=== PATIENT | male | born 1980 | race Hispanic/Latino ===

== ENCOUNTER 2017-12-12 20:53 | Emergency (ER) | payer OTHER ==
[2017-12-12] MEDS ORDERED: DEXAMETHASONE SOD PHOSPHATE 10MG/ML 1ML VIAL ONE (21:41)
[2017-12-12] MEDS ORDERED: IPRATROPIUM/ALBUTEROL SULFATE 3 ML SOLUTION IH ONE (21:50)
== END 2017-12-12 22:41 | disposition home or self-care (01) ==
LOC: EDH 20:53
DX: J20.9 Acute bronchitis, unspecified (principal); Z72.0 Tobacco use
CPT/HCPCS: 94640; 96372; 99283; J1100

== ENCOUNTER 2019-04-21 21:33 | Emergency (ER) | payer OTHER ==
[2019-04-21] MEDS ORDERED: IPRATROPIUM/ALBUTEROL SULFATE 3 ML SOLUTION IH ONE (22:08)
[2019-04-21] MEDS ORDERED: METHYLPREDNISOLONE SOD SUCC 125MG/2ML VIAL ONE (22:09)
[2019-04-21] MEDS ORDERED: ACETAMINOPHEN EXTRA STRENGTH 500 MG TABLET ONE (22:18)
[2019-04-21] MEDS ORDERED: IBUPROFEN 800 MG TAB ONE (22:18)
[2019-04-21 22:45] LABS: RAPID GROUP A STREP POSITIVE (NEGATIVE)
[2019-04-21] MEDS ORDERED: LIDOCAINE HCL-MPF 1% 2ML VIAL ONE (22:50)
[2019-04-21] MEDS ORDERED: CEFTRIAXONE SODIUM 1 GM ONE (22:50)
[2019-04-21] MEDS ORDERED: SODIUM CHLORIDE 0.9% 50 ML IV ONE (22:51)
== END 2019-04-21 23:32 | disposition home or self-care (01) ==
LOC: EDH 21:33
DX: J09.X2 Influenza due to identified novel influenza A virus with other respiratory manifestations (principal); J45.909 Unspecified asthma, uncomplicated; Z90.49 Acquired absence of other specified parts of digestive tract; Z72.0 Tobacco use
CPT/HCPCS: 71046; 87804 ×2; 87880; 94640; 96374; 96375; 99284; J0696; J2930; J3490

== ENCOUNTER 2021-07-10 14:22 | Emergency (ER) | payer OTHER ==
[~2021-07-10] VITALS: Ht 139.7 cm; Wt 93.9 kg
[2021-07-10 14:52] LABS: APPEARANCE,URINE Clear (CLEAR); BILIRUBIN,URINE Negative (NEGATIVE); COLOR,URINE Yellow (YELLOW); GLUCOSE, URINE (UA) Negative (NEGATIVE); KETONES,URINE Negative (NEGATIVE); LEUKOCYTE ESTERASE ,URINE Trace (NEGATIVE); NITRATE,URINE Negative (NEGATIVE); OCCULT BLOOD,URINE Negative (NEGATIVE); PROTEIN,URINE Negative (NEGATIVE); UROBILINOGEN,URINE 0.2 mg/dL (0.2-1.0)
[2021-07-10 15:00] LABS: BACTERIA,URINE Rare /HPF (None Seen); RBC,URINE 0-1 /HPF (0-1); SQUAMOUS EPITHELIAL CELL,UR Rare /HPF (0-2); WBC,URINE 0-1 /HPF (0-1)
[2021-07-10] MEDS ORDERED: PROMETHAZINE HCL 25 MG/ML 1ML AMPULE IM ONE (15:00)
[2021-07-10] MEDS ORDERED: 0.9%NACL 1000ML 1,000 ML IV SCH (15:00)
[2021-07-10] MEDS ORDERED: KETOROLAC 30MG VIAL (30MG/ML) IVP ONE (15:00)
[2021-07-10] MEDS ORDERED: CYCLOBENZAPRINE HCL 10 MG TABLET PO ONE (15:00)
[2021-07-10 15:05] LABS: BASOPHILS % (AUTO) 1.1 % (0.0-5.0); HEMATOCRIT 50.8 % (42-54); LYMPHOCYTES % (AUTO) 23.6 % (21.0-51.0); MEAN CORPUSCULAR HEMOGLOBIN 30.1 pg (27.0-33.0); MEAN CORPUSCULAR HGB CONC 33.3 g/dL (32.0-36.0); MEAN CORPUSCULAR VOLUME 90.4 fL (79-99); MONOCYTES % (AUTO) 8.6 % (3.0-13.0); NEUTROPHILS % (AUTO) 62.5 % (40.0-77.0); PLATELET COUNT (AUTO) 353 K/uL (130-400); RED BLOOD CELL COUNT(AUTO) 5.62 MIL/uL (4.50-6.20); RED CELL DISTRIBUTION WIDTH 12.4 % (11.0-15.5); WHITE BLOOD COUNT (AUTO) 8.2 K/uL (4.8-10.8)
[2021-07-10 15:26] LABS: ALBUMIN 3.9 g/dL (3.5-5.0); BILIRUBIN,TOTAL 0.4 mg/dL (0.2-1.0); CREATININE 0.8 mg/dL (0.5-1.5); POTASSIUM 4.1 mmol/L (3.5-5.1); TOTAL PROTEIN, SERUM 7.4 g/dL (6.0-8.3)
[2021-07-10] MEDS ORDERED: CYCL10TA16 PO (16:00)
[2021-07-10] MEDS ORDERED: NAPR-1180 PO (16:00)
[2021-07-10 16:20] VITALS: BP 125/74
== END 2021-07-10 16:32 | disposition home or self-care (01) ==
LOC: EDH 14:22
DX: G43.909 Migraine, unspecified, not intractable, without status migrainosus (principal); E86.0 Dehydration; Z20.822 Contact with and (suspected) exposure to COVID-19; Z90.49 Acquired absence of other specified parts of digestive tract; Z98.890 Other specified postprocedural states
CPT/HCPCS: 36415; 80053; 81001; 85025; 87635; 87804 ×2; 96361; 96372; 96374; 99284; C9803; J1885; J2550; J7030

== ENCOUNTER 2021-08-18 01:18 | Emergency (ER) | payer OTHER ==
[~2021-08-18] VITALS: Ht 170.2 cm; Wt 87.1 kg
[~2021-08-18 01:18] MED LIST: CYCL10TA16 PO; NAPR-1180 PO
[2021-08-18 01:21] VITALS: BP 156/101
[2021-08-18] MEDS ORDERED: KETOROLAC 60 MG VIAL (30MG/ML) IM ONE (02:00)
[2021-08-18] MEDS ORDERED: ORPHENADRINE CITRATE 30 MG/ML ML IM ONE (02:00)
[2021-08-18] MEDS ORDERED: AMOX500C2 PO (03:11)
[2021-08-18] MEDS ORDERED: BENZ-39 PO (03:11)
[2021-08-18] MEDS ORDERED: IBUP-2070 PO (03:11)
[2021-08-18] MEDS ORDERED: AMOXICILLIN 500 MG CAPSULE PO ONE ×2 (03:15→03:30)
== END 2021-08-18 03:23 | disposition home or self-care (01) ==
LOC: EDH 01:18
DX: U07.1 COVID-19 (principal); J02.0 Streptococcal pharyngitis; J06.9 Acute upper respiratory infection, unspecified; Z79.1 Long term (current) use of non-steroidal anti-inflammatories (NSAID); Z90.49 Acquired absence of other specified parts of digestive tract
CPT/HCPCS: 87635; 87804 ×2; 87880; 96372 ×2; 99284; C9803; J1885; J2360

== ENCOUNTER 2023-07-03 17:19 | Inpatient (IN) | payer OTHER ==
[~2023-07-03] VITALS: Ht 165.1 cm; Wt 89.4 kg
[~2023-07-03 17:19] MED LIST changes: +AMOX500C2 PO; +BENZ-39 PO; +IBUP-2070 PO
[2023-07-03 17:58] LABS: BASOPHILS # (AUTO) 0.09 K/uL (0.00-0.20); BASOPHILS % (AUTO) 0.7 % (0.0-5.0); EOSINOPHILS # (AUTO) 0.13 K/uL (0.00-0.70); HEMATOCRIT 49.6 % (42-54); IMMATURE GRANULOCYTE ABSOLUTE 0.03 K/uL (0-1); LYMPHOCYTES # (AUTO) 1.9 K/uL (1.0-4.8); LYMPHOCYTES % (AUTO) 15.2 % (21.0-51.0); MEAN CORPUSCULAR HEMOGLOBIN 31.4 pg (27.0-33.0); MEAN CORPUSCULAR HGB CONC 35.3 g/dL (32.0-36.0); MONOCYTES # (AUTO) 0.8 K/uL (0.1-1.0); MONOCYTES % (AUTO) 5.9 % (3.0-13.0); NEUTROPHILS # (AUTO) 9.8 K/uL (1.8-7.7); PLATELET COUNT (AUTO) 324 K/uL (130-400); RED BLOOD CELL COUNT(AUTO) 5.57 MIL/uL (4.50-6.20); RED CELL DISTRIBUTION WIDTH 12.2 % (11.0-15.5); WHITE BLOOD COUNT (AUTO) 12.7 K/uL (4.8-10.8)
[2023-07-03 18:08] LABS: CREATININE 0.8 mg/dL (0.5-1.3); POTASSIUM 3.6 mmol/L (3.5-5.1)
[2023-07-03 18:12] LABS: ALBUMIN 3.9 g/dL (3.5-5.0); BILIRUBIN,TOTAL 0.9 mg/dL (0.2-1.0); TOTAL PROTEIN, SERUM 7.5 g/dL (6.0-8.3)
[2023-07-03 18:15] LABS: APPEARANCE,URINE CLEAR (CLEAR); BILIRUBIN,URINE NEGATIVE (NEGATIVE); COLOR,URINE YELLOW (YELLOW); GLUCOSE, URINE (UA) NEGATIVE (NEGATIVE); KETONES,URINE NEGATIVE (NEGATIVE); LEUKOCYTE ESTERASE ,URINE NEGATIVE Leu/uL (NEGATIVE); NITRATE,URINE NEGATIVE (NEGATIVE); PH,URINE 5.5 (5.0-8.0); PROTEIN,URINE 10 mg/dL (NEGATIVE); UROBILINOGEN,URINE 0.2 mg/dL (0.2-1.0)
[2023-07-03 18:18] LABS: ADD UA MICROSCOPIC YES
[2023-07-03 18:46] LABS: RBC,URINE None Seen /HPF (0-1)
[2023-07-03 18:47] LABS: BACTERIA,URINE None Seen /HPF (None Seen); SQUAMOUS EPITHELIAL CELL,UR 0-2 /HPF (0-2); WBC,URINE 0-1 /HPF (0-1)
[2023-07-03] MEDS: 0.9%NACL 1000ML 1,000 ML IV ONE (19:37)
[2023-07-03] MEDS: MORPHINE 4 MG SYG IVP ONE (19:37)
[2023-07-03] MEDS: ZOSYN 3.375GM +NS 50ML IV ONE (19:37)
[2023-07-03] MEDS ORDERED: ONDANSETRON 4MG INJ IV PRN (20:30)
[2023-07-03] MEDS ORDERED: MORPHINE 2 MG SYG IV PRN (20:30)
[2023-07-03] MEDS: 0.9%NACL 1000ML 1,000 ML IV SCH (20:55)
[2023-07-03] MEDS: ONDANSETRON 4MG INJ IVP ONE (20:55)
[2023-07-03] MEDS: ZOSYN 3.375GM+NS 50ML 50 ML IV SCH (20:56)
[2023-07-03] MEDS: FAMOTIDINE 20MG VIAL IV SCH (23:22)
[2023-07-04] VITALS (7 sets, daily range): BP systolic 128–156; BP diastolic 84–107; PULSE 71–86; RESP 16–21; O2SAT 96
[2023-07-04 04:03] LABS: BASOPHILS # (AUTO) 0.08 K/uL (0.00-0.20); BASOPHILS % (AUTO) 0.6 % (0.0-5.0); EOSINOPHILS # (AUTO) 0.09 K/uL (0.00-0.70); EOSINOPHILS % (AUTO) 0.6 % (0.0-8.0); HEMATOCRIT 49.3 % (42-54); IMMATURE GRANULOCYTE ABSOLUTE 0.07 K/uL (0-1); LYMPHOCYTES # (AUTO) 2.2 K/uL (1.0-4.8); LYMPHOCYTES % (AUTO) 15.9 % (21.0-51.0); MEAN CORPUSCULAR HEMOGLOBIN 31.6 pg (27.0-33.0); MEAN CORPUSCULAR HGB CONC 33.7 g/dL (32.0-36.0); MEAN CORPUSCULAR VOLUME 93.7 fL (79-99); MONOCYTES # (AUTO) 1.3 K/uL (0.1-1.0); MONOCYTES % (AUTO) 9.3 % (3.0-13.0); NEUTROPHILS # (AUTO) 10.3 K/uL (1.8-7.7); NEUTROPHILS % (AUTO) 73.1 % (40.0-77.0); PLATELET COUNT (AUTO) 293 K/uL (130-400); RED BLOOD CELL COUNT(AUTO) 5.26 MIL/uL (4.50-6.20); RED CELL DISTRIBUTION WIDTH 12.2 % (11.0-15.5); WHITE BLOOD COUNT (AUTO) 14.1 K/uL (4.8-10.8)
[2023-07-04 04:14] LABS: INR <= 0.93 (0.85-1.15); PROTHROMBIN TIME 10.3 SEC (9.6-11.6)
[2023-07-04 04:15] LABS: PARTIAL THROMBOPLASTIN TIME 28.9 SEC (26.3-35.5)
[2023-07-04 04:23] LABS: ALBUMIN 3.5 g/dL (3.5-5.0); BILIRUBIN,TOTAL 1.1 mg/dL (0.2-1.0); CREATININE 0.9 mg/dL (0.5-1.3); MAGNESIUM 1.9 mg/dL (1.80-2.40); POTASSIUM 3.5 mmol/L (3.5-5.1); TOTAL PROTEIN, SERUM 7.2 g/dL (6.0-8.3)
[2023-07-04] MEDS ORDERED: POTASSIUM CHLORIDE 20MEQ/100ML 100 ML IV PRN (06:00)
[2023-07-04] MEDS ORDERED: KCL 20 MEQ ERTAB PO PRN (06:00)
[2023-07-04] MEDS ORDERED: POTASSIUM CHLORIDE 10% ELIXIR 20 MEQ/15 ML UDCUP PO PRN (06:00)
[2023-07-04] MEDS: MAGNESIUM 2GM PREMIX 50ML 50 ML IV PRN (06:33)
[2023-07-04 15:52] LABS: HEMATOCRIT 47.8 % (42-54); MEAN CORPUSCULAR HEMOGLOBIN 31.9 pg (27.0-33.0); MEAN CORPUSCULAR HGB CONC 33.9 g/dL (32.0-36.0); MEAN CORPUSCULAR VOLUME 94.1 fL (79-99); RED BLOOD CELL COUNT(AUTO) 5.08 MIL/uL (4.50-6.20); RED CELL DISTRIBUTION WIDTH 12.1 % (11.0-15.5); WHITE BLOOD COUNT (AUTO) 12.2 K/uL (4.8-10.8)
[2023-07-04 16:03] LABS: CREATININE 0.9 mg/dL (0.5-1.3); POTASSIUM 3.6 mmol/L (3.5-5.1)
[2023-07-05] VITALS: BP 155/88; PULSE 80; RESP 20
[2023-07-05 04:00] VITALS: BP 132/81; PULSE 77; RESP 19
[2023-07-05 04:08] LABS: HEMATOCRIT 46.9 % (42-54); MEAN CORPUSCULAR HEMOGLOBIN 31.3 pg (27.0-33.0); MEAN CORPUSCULAR HGB CONC 33.7 g/dL (32.0-36.0); MEAN CORPUSCULAR VOLUME 93.1 fL (79-99); RED BLOOD CELL COUNT(AUTO) 5.04 MIL/uL (4.50-6.20); RED CELL DISTRIBUTION WIDTH 12.1 % (11.0-15.5); WHITE BLOOD COUNT (AUTO) 11.5 K/uL (4.8-10.8)
[2023-07-05 04:23] LABS: CREATININE 0.9 mg/dL (0.5-1.3); POTASSIUM 3.8 mmol/L (3.5-5.1)
[2023-07-05 08:00] VITALS: BP 126/78; PULSE 74; PULSE 91; RESP 18; RESP 19
[2023-07-05 12:00] VITALS: BP 124/76; PULSE 64; RESP 18
[2023-07-05] MEDS ORDERED: METR-172 PO (13:45)
[2023-07-05] MEDS ORDERED: LEVO-70 PO (13:45)
== END 2023-07-05 14:45 | disposition home or self-care (01) | DRG 392 ==
LOC: EDH 17:19 → EDHIP 17:20 → 2DH 07-04 01:31 → 3AH 07-04 16:55
PROVIDERS: ADMIT Internal Medicine; ATTEND Internal Medicine
DX: K57.32 Diverticulitis of large intestine without perforation or abscess without bleeding (principal); E66.9 Obesity, unspecified; F17.210 Nicotine dependence, cigarettes, uncomplicated; K40.90 Unilateral inguinal hernia, without obstruction or gangrene, not specified as recurrent; R03.0 Elevated blood-pressure reading, without diagnosis of hypertension; Z68.32 Body mass index [BMI] 32.0-32.9, adult; Z90.49 Acquired absence of other specified parts of digestive tract
CPT/HCPCS: 36415; 74176; 76705; 80048; 80053; 81001; 82948; 83605; 83690; 83735; 85025; 85027; 85610; 85730; 87040; G0378; J2270; J2405; J2543; J3475; J3490; J7030

== ENCOUNTER 2023-09-15 08:52 | Emergency (ER) | payer OTHER ==
[~2023-09-15] VITALS: Ht 170.2 cm; Wt 86.2 kg
[~2023-09-15 08:52] MED LIST changes: -AMOX500C2 PO; -BENZ-39 PO; -CYCL10TA16 PO; -IBUP-2070 PO; +LEVO-70 PO; +METR-172 PO; -NAPR-1180 PO
[2023-09-15 09:20] LABS: BASOPHILS # (AUTO) 0.08 K/uL (0.00-0.20); EOSINOPHILS # (AUTO) 0.15 K/uL (0.00-0.70); HEMATOCRIT 51.4 % (42-54); IMMATURE GRANULOCYTE ABSOLUTE 0.02 K/uL (0-1); LYMPHOCYTES # (AUTO) 1.9 K/uL (1.0-4.8); LYMPHOCYTES % (AUTO) 25.2 % (21.0-51.0); MEAN CORPUSCULAR HEMOGLOBIN 31.8 pg (27.0-33.0); MEAN CORPUSCULAR HGB CONC 34.4 g/dL (32.0-36.0); MEAN CORPUSCULAR VOLUME 92.4 fL (79-99); MONOCYTES # (AUTO) 0.6 K/uL (0.1-1.0); MONOCYTES % (AUTO) 7.4 % (3.0-13.0); NEUTROPHILS # (AUTO) 4.9 K/uL (1.8-7.7); NEUTROPHILS % (AUTO) 64.1 % (40.0-77.0); PLATELET COUNT (AUTO) 359 K/uL (130-400); RED BLOOD CELL COUNT(AUTO) 5.56 MIL/uL (4.50-6.20); RED CELL DISTRIBUTION WIDTH 12.4 % (11.0-15.5); WHITE BLOOD COUNT (AUTO) 7.7 K/uL (4.8-10.8)
[2023-09-15 09:33] LABS: POTASSIUM 4.8 mmol/L (3.5-5.1)
[2023-09-15 10:37] VITALS: BP 132/78; PULSE 78; RESP 18; O2SAT 98
== END 2023-09-15 10:47 | disposition home or self-care (01) ==
LOC: EDH 08:52
DX: R79.9 Abnormal finding of blood chemistry, unspecified (principal); Z90.49 Acquired absence of other specified parts of digestive tract; Z79.899 Other long term (current) drug therapy; Z98.890 Other specified postprocedural states
CPT/HCPCS: 36415; 80048; 85025

== ENCOUNTER 2024-09-13 09:20 | Emergency (ER) | payer SELFPAY ==
[~2024-09-13] VITALS: Ht 170.2 cm; Wt 94.0 kg
[~2024-09-13 09:20] MED LIST changes: +CIPR-278 PO; +FAMO-136 PO
[2024-09-13 10:04] LABS: INFLUENZA TYPE A Negative For Type A (NEGATIVE); INFLUENZA TYPE B Negative For Type B (NEGATIVE)
[2024-09-13 10:26] LABS: SARS-CoV-2, RNA, NAAT POSITIVE SARS CoV-2 (NEGATIVE)
[2024-09-13] MEDS ORDERED: LORA10TA7 PO (10:36)
[2024-09-13] MEDS ORDERED: FLUT16H NS (10:36)
--- NOTE | 2024-09-13 10:36 | ERN ---
General Chief Complaint: Cough Stated Complaint: SINUS PRESSURE, COUGH Time Seen by MD: 09:28 Source: patient History of Present Illness Initial Comments Patient is a 43-year-old male coming in complaining of URI symptoms. Per patient he has been having these symptoms for three days. States that he has a nasal congestion and facial discomfort. Allergies: Coded Allergies: No Known Drug Allergies (Unverified Allergy, Unknown, 04/21/19) Home Meds Active Scripts Famotidine (Pepcid) 20 Mg Tablet, 1 TAB PO BID for 30 Days, #60 TAB 0 Refills Prov:VILLA,[employer] 05/31/24 Ciprofloxacin HCl (Cipro) 500 Mg Tablet, 1 TAB PO BID for 5 Days, #10 TAB 0 Refills Prov:DIAMOND VILLA [employer] 05/31/24 Metronidazole (Metronidazole) 500 Mg Tablet, 500 MG PO Q8H, #30 TAB 0 Refills Prov:[facility] 07/05/23 Levofloxacin (Levofloxacin) 500 Mg Tablet, 500 MG PO DAILY, #10 TAB 0 Refills Prov:MIKE PALMA [facility] 07/05/23 Past Medical History Past Medical History: Migraines, Other Medical History Other: Headaches Past Surgical History: Cholecystectomy Surgical History Other: INGUINAL HERNIA Family History Family History: Negative Social History Social History: Negative ROS Dictation CONSTITUTIONAL: No chills, no fever, no weakness, no diaphoresis, no malaise. HEAD/FACE: No signs of trauma. EENT: No eye pain, no blurred vision, no tearing, no double vision, no ear pain, no ear discharge, no nose pain, nasal congestion, no throat pain, no throat swelling, no mouth pain. RESPIRATORY: No cough, no orthopnea, no SOB, no stridor, no wheezing. CARDIOVASCULAR: No chest pain, no edema, no palpitations, no syncope. GASTROINTESTINAL/ABDOMINAL: No abdominal pain, no constipation, no diarrhea, no nausea, no vomiting. GENITOURINARY: No abnormal discharge, no dysuria, no frequent urination, no hematuria. No complaints of pain in the genitals. MUSCULOSKELETAL: No back pain, no gout, no joint pain, no joint swelling, no muscle pain, no muscle stiffness, no neck pain. INTEGUMENTARY: No change in color, no change in hair/nails, no dryness, no lesion, no lumps, no rash. NEUROLOGICAL/PSYCH: No anxiety, not depressed, no emotional problem, no headache, no numbness, no pre-existing deficit, no history of seizures, no tremors, no weakness. HEMATOLOGIC/LYMPHATIC: Not anemic, no history of blood clots, no apparent bleeding, no bruising, glands not swollen. All Systems Negative, Except as Noted. Physical Exam Physical Exam Dictation VITAL SIGNS: Reviewed. GENERAL APPEARANCE: Alert, oriented x3, no acute distress, obese. HEAD AND FACE: Non-traumatic. EYES: PERRL, pink conjunctivas, eyelid no trauma, anterior chamber clear. EARS: Pinnas intact and no signs of trauma or erythema. Ear canals clear and no discharge. TMs erythema. NOSE: No discharge, no bleeding. OROPHARYNX: Mouth normal, teeth no caries, tongue pink. Pharynx erythema. Tonsils no exudates, no abscesses noted. Mucous membrane moist. NECK: Supple, non-tender, no thyromegaly, no masses, no JVD, no bruits. BREAST: Deferred. CHEST: No tenderness, no crepitus, no paradoxical movement, no retractions. LUNGS: Clear, well-ventilated, symmetric, no rales, no wheezing, no rhonchi, no stridor, good breath sounds bilaterally. HEART: Regular rate, regular rhythm, no murmur, no gallops. VASCULAR: No peripheral edema. ABDOMEN: Soft, positive bowel sounds, nondistended, no guarding, nontender, no rebound, no masses no hepatomegaly, no splenomegaly, no Forrest's sign, no hernias. RECTAL: Deferred. GENITAL: Deferred. NEUROLOGICAL: Normal speech, gross motor function intact, gross sensory function intact. MUSCULOSKELETAL: Neck nontender, full range of motion, back nontender, full range of motion. EXTREMITIES: Nontender, full range of motion. SKIN: Color pink, dry, no turgor, no rash, no lacerations, no abrasions, no contusions. LYMPHATICS: Deferred. Results Laboratory and Microbiology Lab and Micro Result Laboratory Tests Test 09/13/24 09:38 Influenza Type A Antigen Negative For Type A Influenza Type B Antigen Negative For Type B SARS-CoV-2, RNA, NAAT POSITIVE SARS CoV-2 Labs Reviewed?: Yes MDM MDM: Differential diagnosis: URI, COVID, flu, strep Rationale: Tests considered and ordered secondary to shared decision making include: Previous outside records reviewed: Old ER visits. Risk of complication and/or morbidity or mortality of patient management: None Medications-Per medication reconciliation Need for hospitalization: Patient does not meet criteria for hospitalization. Patient is a 43-year-old gentleman coming in complaining of a cough and URI symptoms. On physical exam nasal turbinate swelling bilateral oropharyngeal erythema. Patient is positive for COVID. Patient will be discharged in stable condition with a diagnosis of COVID-19. It did advised him appropriate follow up with PCP and [id number] medication for symptomatic relief. ED Course Orders Procedure Category Date Status Time Rapid (Group A Strep) LAB 09/13/24 In Process 09:35 Influenza Type A & B, LAB 09/13/24 In Process Rapid 09:35 Covid Rna Naat LAB 09/13/24 In Process 09:35 Vital Signs Date Time Temp Pulse Resp B/P (MAP) Pulse Ox O2 Delivery O2 Flow Rate FiO2 09/13/24 09:25 97.5 62 16 158/97 97 Room Air* 0 21 09/13/24 09:21 97.5 61 16 158/97 98 Room Air 0 DX & DISP Disposition: Discharge Departure Impression: Primary Impression: COVID-19 Condition: Stable Scripts Loratadine (Loratadine) 10 Mg Tablet 1 TAB PO DAILY for allergy symptoms for 30 Days, #30 TAB 0 Refills Prov: TAMMIE CHAPPELL MD 09/13/24 Fluticasone Propionate (Flonase Nasal [place]) 50 Mcg/Actuation [place] 2 SPRAY NS DAILY, #16 GM 0 Refills Prov: TAMMIE CHAPPELL MD 09/13/24 Additional Instructions: FOLLOW-UP WITH PRIMARY CARE PROVIDER IN 1 TO 2 DAYS. TAKE MEDICATIONS DIRECTED HERE IN THE EMERGENCY ROOM. OKAY TO CONTINUE HOME MEDICATIONS UNLESS O THERWISE DISCUSSED DURING YOUR VISIT IN THE EMERGENCY ROOM TODAY. RETURN TO YOUR NEAREST EMERGENCY ROOM IF SYMPTOMS WORSEN OR IF THERE IS NO IMPROVEMENT. CALL 911 IF YOU NEED IMMEDIATE ASSISTANCE. TAKE TYLENOL [id number] NEEDED AND IF NO CONTRAINDICATIONS ARE PRESENT. INCREASE ORAL HYDRATION. A WOUND CULTURE OR URINE CULTURE WAS ORDERED HERE IN THE EMERGENCY ROOM DEPARTMENT PLEASE FOLLOW-UP WITH PRIMARY CARE PROVIDER AND ADVISE THEM TO GET REPORTS FROM OUR FACILITY. IF YOU HAD ANY STEFANIE WRAP/SPLINTS THAT WERE APPLIED HERE, PLEASE DO NOT REMOVE THEM UNTIL YOU SEE YOUR PRIMARY CARE OR SPECIALTY. Referrals: Referrals: SELF,REFERRAL (PCP) JULIETA MORALES MD Time of Disposition: 10:35 TAMMIE CHAPPELL MD Sep 13, 2024 10:36
[2024-09-13 10:42] LABS: RAPID GROUP A STREP positive (NEGATIVE)
[2024-09-13 10:48] VITALS: BP 158/93; PULSE 58; RESP 16; TEMP 97.9; O2SAT 100
== END 2024-09-13 10:56 | disposition home or self-care (01) ==
LOC: EDH 09:20
DX: U07.1 COVID-19 (principal); Z90.49 Acquired absence of other specified parts of digestive tract; Z79.899 Other long term (current) drug therapy
CPT/HCPCS: 99283; 87635; 87880; 87804 ×2; 96372; J1100